=== PATIENT | female | born 1980 | race Hispanic/Latino ===

== ENCOUNTER 2022-08-05 00:29 | Emergency (ER) | payer SELFPAY ==
[~2022-08-05] VITALS: Ht 160 cm; Wt 65.8 kg
[~2022-08-05 00:29] MED LIST: ADVIL200 M1 PO; AUGMENTIN 875-1 EACH PO; DOXYCYCLINE HY100 MG PO; METRONIDAZOLE500 MG PO; MOTRIN400 MG PO; NORCO 5-325 TA1 EACH PO; NYQUIL D COLD295 ML PO; ONDANSETRON ODT4 MG SL; ULTRAM50 MG PO; ZOFRAN ODT4 MG PO
[2022-08-05] MEDS ORDERED: MECLIZINE HCL25 MG PO (02:36)
[2022-08-05] MEDS ORDERED: MACROBID 100 M100 MG PO (02:51)
== END 2022-08-05 03:14 | disposition home or self-care (01) ==
LOC: ED 00:29
DX: H81.10 Benign paroxysmal vertigo, unspecified ear (principal); N39.0 Urinary tract infection, site not specified; F17.200 Nicotine dependence, unspecified, uncomplicated
CPT/HCPCS: 36415; 80053; 81001; 84703; 85025; 87088; 87186; 96374; 96375; 99284-25; J1790; J2405; J7121